=== PATIENT | female | born 2000 | race Caucasian/White ===

== ENCOUNTER 2024-02-05 15:11 | Emergency (ER) | payer SELFPAY ==
[2024-02-05 15:17] VITALS: BP 137/90; PULSE 78; RESP 17; TEMP 36.6; O2SAT 96; BMI 42.1
--- NOTE | 2024-02-05 15:24 | DI.RAD.S_ITS ---
PROCEDURE: XR CHEST 2V INDICATIONS: cough, fevers TECHNIQUE: 2 views of the chest were acquired. COMPARISON: None. FINDINGS: Surgical changes and devices: None. Lungs and pleura: Lungs are clear. No pleural effusions or pneumothorax. Mediastinum: Mediastinal contours are normal. Heart size is normal. Bones and chest wall: No suspicious bony abnormalities. Soft tissues appear unremarkable. IMPRESSION: No acute cardiopulmonary abnormality is seen. Dictated by: Noel Rouse M.D. on 02/05/2024 at 16:16 Approved by: Noel Rouse M.D. on 02/05/2024 at 16:17
[2024-02-05 16:36] LABS: Adenovirus Not Detected (Not Detect); B. parapertussis Not Detected (Not Detecte); Bordetella pertussis Not Detected (Not Detect); Chlamydophila pneumoniae Not Detected (Not Detect); Coronavirus 229E Not Detected (Not Detect); Coronavirus HKU1 Not Detected (Not Detect); Coronavirus NL 63 Not Detected (Not Detect); Coronavirus OC43 Not Detected (Not Detect); Human Metapneumovirus Not Detected (Not Detect); Human Rhinovirus/Enterovirus Detected (Not Detect); Influenza A Not Detected (Not Detect); Influenza B Not Detected (Not Detect); Mycoplasma pneumoniae Not Detected (Not Detect); Parainfluenza Virus 1 Not Detected (Not Detect); Parainfluenza Virus 2 Not Detected (Not Detect); Parainfluenza Virus 3 Not Detected (Not Detect); Parainfluenza Virus 4 Not Detected (Not Detect); Respiratory Syncytial Virus Not Detected (Not Detect); SARS- CoV-2 Not Detected (Not Detecte)
[2024-02-05] MEDS: ALBUTEROL HFA PREPACK 1 BOX MISC (17:01)
--- NOTE | 2024-02-05 17:52 | ED.URI ---
HPI - URI/Sore Throat General Chief Complaint: Upper Respiratory Symptoms Stated Complaint: Respiratory Issues Time Seen by Provider: 02/05/24 17:51 Source: patient Mode of arrival: Ambulatory History of Present Illness HPI Narrative: Patient is a 23-year-old female with history of asthma presenting today with ongoing upper respiratory symptoms. Related Data Home Medications Medication Instructions Recorded Confirmed No Known Home Medications 02/05/24 02/05/24 Allergies Allergy/AdvReac Type Severity Reaction Status Date / Time No Known Drug Allergies Allergy Verified 02/05/24 15:22 Patient History Social History Smoking Status: Current every day smoker Smoking Status: Current every day smoker alcohol intake frequency: a few times a month Substance Use Type: marijuana Exam Initial Vital Signs Initial Vital Signs: Vital Signs Temperature 98 F 02/05/24 15:17 Pulse Rate 78 02/05/24 15:17 Respiratory Rate 17 02/05/24 15:17 Blood Pressure 137/90 02/05/24 15:17 Pulse Oximetry 96 02/05/24 15:17 Oxygen Delivery Method Room Air 02/05/24 15:17 Course Orders Ordered: ED Orders 02/05/24 15:23 Respiratory Panel (Film Array) Stat 02/05/24 15:24 XR chest 2V Stat Discontinued Medications Albuterol (Albuterol Hfa Prepack) 1 box MISC DIRECTED ONE Stop: 02/05/24 15:25 Last Admin: 02/05/24 17:01 Dose: 1 box Documented By: JAELYN Vital Signs Vital signs: Vital Signs - 8 hr 02/05/24 15:17 02/05/24 17:01 02/05/24 18:18 Temperature 98 F 98.2 F Pulse Rate 78 76 Respiratory Rate 17 18 Blood Pressure 137/90 128/67 Pulse Oximetry 96 99 Oxygen Delivery Method Room Air Room Air Room Air Oxygen Flow Rate 0 Fraction of Inspired Oxygen 21 MDM - URI/Sore Throat Lab Data Labs: Lab Results 02/05/24 Range/Units 15:23 Chlamy pneumoniae PCR Not detected (Not Detect) Adenovirus (PCR) Not detected (Not Detect) B.parapertussis DNA PCR Not detected (Not Detecte) Coronavirus OC43 (PCR) Not detected (Not Detect) Coronavirus HKU1 (PCR) Not detected (Not Detect) Coronavirus 229E (PCR) Not detected (Not Detect) SARS-CoV-2 (PCR) Not detected (Not Detecte) Coronavirus NL63 (PCR) Not detected (Not Detect) Human Metapneumovir PCR Not detected (Not Detect) Influenza Type A (PCR) Not detected (Not Detect) Influenza Type B (PCR) Not detected (Not Detect) M. pneumoniae (PCR) Not detected (Not Detect) Parainfluenza 1 (PCR) Not detected (Not Detect) Parainfluenza 2 (PCR) Not detected (Not Detect) Parainfluenza 3 (PCR) Not detected (Not Detect) Parainfluenza 4 (PCR) Not detected (Not Detect) RSV (PCR) Not detected (Not Detect) Entero/Rhino (PCR) Detected H (Not Detect) Imaging Data Chest x-ray: Radiologist's Impression: PROCEDURE: XR CHEST 2V INDICATIONS: cough, fevers TECHNIQUE: 2 views of the chest were acquired. COMPARISON: None. FINDINGS: Surgical changes and devices: None. Lungs and pleura: Lungs are clear. No pleural effusions or pneumothorax. Mediastinum: Mediastinal contours are normal. Heart size is normal. Bones and chest wall: No suspicious bony abnormalities. Soft tissues appear unremarkable. IMPRESSION: No acute cardiopulmonary abnormality is seen. Dictated by: Noel Rouse M.D. on 02/05/2024 at 16:16 Approved by: Noel Rouse M.D. on 02/05/2024 at 16:17 [facility] Narrative Medical decision making narrative: Patient 23-year-old female was at upper respiratory like symptoms ongoing for 1 week. She really just needs a work no. She is out of her inhaler. She does not have significant respiratory distress or wheezing on exam. Her respiratory panel is positive for entero/rhinovirus. Enter chest x-ray is negative for pneumonia. #65: Appropriate Treatment for Patients with URI x The patient was diagnosed with upper respiratory infection and was not prescribed or dispensed an antibiotic. [SATISFIES [employer] PERFORMANCE] [] The patient has competing comorbid condition within the last 12 months. The comorbid condition was [] (e.g., neutropenia, cystic fibrosis, chronic bronchitis, pulmonary edema, respiratory failure, rheumatoid lung disease). [MIPS PERFORMANCE EXCEPTION/EXCLUSION] [] The patient is already on antibiotics, or has taken them within the last 30 days. [MIPS PERFORMANCE EXCEPTION/EXCLUSION] [] The patient had a competing diagnosis of [] (e.g. acute otitis media, chronic sinusitis, cellulitis, UTI, etc.). [[facility] PERFORMANCE EXCEPTION/EXCLUSION] [] The patient was diagnosed with upper respiratory infection and was prescribed or dispensed an antibiotic. [DOES NOT SATISFY [facility] PERFORMANCE] Discharge Plan Departure Patient Disposition: Home Clinical Impression: Upper respiratory infection Instructions: DI for Viral Upper Respiratory Infection -- Adult Activity Restrictions/Additional Instructions: *You have been diagnosed with upper respiratory infection *What to do: You do have entero/rhinovirus this is likely been causing your symptoms last week. Glad to hear that you are feeling better *Continue to take medications as directed Albuterol inhaler 1-2 puffs every 4 hours if needed *Follow up with your primary care provider in 2-3 days or call [phone] *Return to ER if you should have increased difficulty breathing or any new, worsening or concerning symptoms Prescriptions: No Action No Known Home Medications Referrals: Miscellaneous,Doctor, [Primary Care Provider] - Stand Alone Forms: Patient Portal/API, Work Release Note
[2024-02-05 18:18] VITALS: BP 128/67; PULSE 76; RESP 18; TEMP 36.8; O2SAT 99
--- NOTE | 2024-05-10 12:10 | CM.SWNOTE ---
ED CLIENT SUPPORT ADMINISTRATOR Note: Patient called and left a message with the ED CLIENT SUPPORT ADMINISTRATOR line, requesting assistance with obtaining a primary care provider because she just moved to [place], left phone number (#[phone]). Patient also noted requesting a MH provider after establishing with a PCP. CLIENT SUPPORT ADMINISTRATOR reviewed EMR, pt did not come to the ED over the weekend. CLIENT SUPPORT ADMINISTRATOR called patient, introduced self and role. Patient reports that she has established her [employer] insurance and has a preliminary PCP appointment set up, pending her [employer] ID #. Patient stated she would still appreciate MH Provider list to start her search for MH providers anyway. Patient provided email address: [email or web address]. ED CLIENT SUPPORT ADMINISTRATOR encouraged patient to return to ED if needs more assistance. This CLIENT SUPPORT ADMINISTRATOR sent MH clinics, providers who take [employer] insurance as well as Crisis contacts to pt's email address. Patient to establish with PCP and MH Provider when available. ANUM Robertson
== END 2024-02-05 18:19 | disposition home or self-care (01) ==
PROVIDERS: Emergency Provider Emergency Medicine
DX: J06.9 Acute upper respiratory infection, unspecified (principal); F17.200 Nicotine dependence, unspecified, uncomplicated
CPT/HCPCS: 71046; 87633; 99281; 99283

== ENCOUNTER → 2024-05-13 13:40 | Outpatient (CLI) | payer OTHER, MEDICAID, SELFPAY ==
[2024-05-13 14:20] LABS: Add Manual Diff / Slide Review NO; Basophils Absolute Auto 0 /uL (0-100); Basophils Percent Auto 0.4 % (0-2); Eosinophils Absolute Auto 200 /uL (0-450); Eosinophils Percent Auto 1.7 % (2-4); Hematocrit 47.6 % (36-46); Hemoglobin 16.6 g/dL (12.0-16.0); Lymphocytes Absolute Auto 2200 /uL (1100-4500); Lymphocytes Percent Auto 21.8 % (25-40); Mean Corpuscular HGB Conc 34.9 % (30-36); Mean Corpuscular Hemoglobin 31.6 PG (26-34); Mean Corpuscular Volume 90.5 fL (80-100); Monocytes Absolute Auto 500 /uL (0-900); Neutrophils Absolute Auto 7100 /uL (1500-7000); Neutrophils Percent Auto 71.1 % (50-75); Platelet Count 285 X10^3/uL (150-400); Red Blood Cell Count 5.26 X10^6/uL (4.0-5.2); Red Cell Distribution Width 13.6 % (11.6-14.8)
[2024-05-13 14:46] LABS: BUN Creatinine Ratio 6.8 (6-22); Blood Urea Nitrogen 5 mg/dL (7-17); Calcium 9.1 mg/dL (8.4-10.2); Carbon Dioxide 26 mmol/L (22-32); Chloride 108 mmol/L (98-107); Estimated Glomerular Filt Rate > 60 mL/min (>60); Glucose 107 mg/dL (70-100); HEMOLYSIS < 15 (0-50); Potassium 3.9 mmol/L (3.4-5.1); Sodium 141 mmol/L (137-145)
== END ==
LOC: LAB 13:41
PROVIDERS: PCP Nurse Practitioner Family; Referring Provider Nurse Practitioner Family; Visit Provider Nurse Practitioner Family
DX: F41.9 Anxiety disorder, unspecified (principal); F32.A Depression, unspecified
CPT/HCPCS: 36415; 80048; 84443; 85025